=== PATIENT | female | born 1975 | race Caucasian/White ===

== ENCOUNTER 2016-11-14 10:01 | Inpatient (IN) | payer OTHER ==
[~2016-11-14] VITALS: Ht 152.4 cm; Wt 89.8 kg
[~2016-11-14 10:01] MED LIST: TRAMADOL50 MG PO
[2016-11-14 10:06] VITALS: BP 162/106
[2016-11-14] MEDS ORDERED: ASPIRIN 325 MG TAB PO ONE (10:25)
[2016-11-14] MEDS ORDERED: fentaNYL 0.05 MG/ML VIAL IVP ONE (10:25)
--- NOTE | 2016-11-14 10:50 | NUR ---
PATIENT PRESENTS TO ED DUE TO NTERMITTENT CHEST PAIN RADIATING TO LEFT ARM SINCE THURSDAY. DENIES N/V/D; SKIN IS PINK/WARM/DRY; AAOX4 WITH EVEN AND STEADY GAIT; LUNGS CLEAR BL; HR EVEN AND REGULAR; PT DENIES ANY FEVER, CP, SOB, OR COUGH AT THIS TIME; PATIENT STATES PAIN OF 5/10 AT THIS TIME; PATIENT POSITIONED FOR COMFORT; HOB ELEVATED; BEDRAILS UP X2; BED DOWN.
--- NOTE | 2016-11-14 11:12 | NUR ---
PT AAO,NO C/O PAIN AT THIS TIME ON O2 AT 2L/MIN, SKIN WARM TO TOUCH RESP. EVEN AND UNLABORED, NO VOMITTING NOTED, DAUGHTER AT BEDSIDE.
[2016-11-14] MEDS ORDERED: MOTRIN600 MG PO (11:47)
[2016-11-14] MEDS ORDERED: ROBAXIN500 M1 PO (11:47)
--- NOTE | 2016-11-14 11:47 | NUR ---
PT AWARE WILL BE ADMITTED FOR FURTHER OBSERVATION.
--- NOTE | 2016-11-14 12:07 | NUR ---
REPORT GIVEN TO JOSÉ MIGUEL
--- NOTE | 2016-11-14 12:25 | NUR ---
DR. GRAHAM AT BEDSIDE
--- NOTE | 2016-11-14 12:50 | NUR ---
PT ON UNIT. AAOX4. NO S/S OF ACUTE DISTRESS. PT DENIES PAIN. STATES SHE HAS SOME TIGHTNESS BUT ITS TOLERABLE. IV SITE PATENT AND INTACT. PT ORIENTED TO ROOM. CALL LIGHT WITHIN REACH. SAFETY MEASURES ENSURED. WILL CONTINUE TO MONITOR.
[2016-11-14 13:08] VITALS: BP 121/71
[2016-11-14] MEDS ORDERED: diphenhydrAMINE 50 MG/ML VIAL IVP PRN (13:15)
[2016-11-14] MEDS ORDERED: ACETAMINOPHEN 650 MG SUPP RC PRN (13:15)
[2016-11-14] MEDS ORDERED: BISACODYL 10 MG SUPP RC PRN (13:15)
[2016-11-14] MEDS ORDERED: MORPHINE SULFATE 2 MG/ML SYR IVP PRN (13:15)
[2016-11-14] MEDS ORDERED: SODIUM PHOSPHATE 118 ML ENEM RC PRN (13:15)
[2016-11-14] MEDS ORDERED: ALUMINUM HYD/MAG/SIMETHICONE 30 ML UDC PO PRN (13:15)
[2016-11-14] MEDS ORDERED: IPRATROPIUM 0.02% 0.5 MG/2.5 ML NEBU INH PRN (13:15)
[2016-11-14] MEDS ORDERED: MAG SULF 2000 MG/WATER PREMIX 50 ML IV PRN (13:15)
[2016-11-14] MEDS ORDERED: ONDANSETRON 4 MG/2 ML VIAL IVP PRN (13:15)
[2016-11-14] MEDS ORDERED: guaiFENesin DM 200/20 MG-10 ML 10 ML UDC PO PRN (13:15)
[2016-11-14] MEDS ORDERED: HYDROcodone/APAP 5/325 MG 1 TAB TAB PO PRN ×2 (13:15)
[2016-11-14] MEDS ORDERED: cloNIDine 0.1 MG TAB PO PRN (13:15)
[2016-11-14] MEDS ORDERED: LORazepam 2 MG/ML VIAL IVP PRN (13:15)
[2016-11-14] MEDS ORDERED: NITROGLYCERIN 0.4 MG TAB SL PRN (13:15)
[2016-11-14] MEDS ORDERED: ALBUTEROL 0.083% 2.5 MG/3 ML NEBU INH PRN (13:15)
[2016-11-14] MEDS ORDERED: DOCUSATE SODIUM 250 MG GELCAP PO PRN (13:15)
[2016-11-14] MEDS ORDERED: POTASSIUM CHLORIDE 10 MEQ TABER PO PRN (13:15)
[2016-11-14] MEDS ORDERED: POTASSIUM CHLORIDE 40 MEQ, LIDOCAINE 1% 25 MG in NACL 0.9% 250 ML IV PRN (13:15)
[2016-11-14] MEDS ORDERED: ZOLPIDEM 5 MG TAB PO PRN (13:15)
[2016-11-14] MEDS ORDERED: MAGNESIUM OXIDE 400 MG TAB PO PRN (13:15)
--- NOTE | 2016-11-14 14:01 | NUR ---
PT RESTING IN BED. NO S/S OF ACUTE DISTRESS. PT DENIES PAIN. CALL LIGHT WITHIN REACH. WILL CONTINUE TO MONITOR.
[2016-11-14 16:00] VITALS: BP 120/67
--- NOTE | 2016-11-14 16:09 | NUR ---
PT RESTING IN BED. NO S/S OF ACUTE DISTRESS. PT DENIES PAIN. IV SITE PATENT AND INTACT. CALL LIGHT WITHIN REACH. WILL CONTINUE TO MONITOR.
--- NOTE | 2016-11-14 19:10 | NUR ---
ENDORSED PLAN OF CARE TO NIGHT RN. PT REMAINS IN STABLE CONDITION.
--- NOTE | 2016-11-14 19:15 | NUR ---
PT IS CURRENTLY AWAKE ALERT ORIENTED RESTING IN BED DENIES CHEST PAIN AND SOB AT THIS TIME,PT CONTINUOUS TO HAVE OXYGEN AT 2L VIA NASAL CANNULA IN PLACE.VS TAKEN AND RECORDED.PT IS AMBULATORY AND CONTINUES TO DRINK WATER CALL LIGHT WITHIN REACH WILL CONTINUE TO MONITOR.
[2016-11-14 20:00] VITALS: BP 105/63
--- NOTE | 2016-11-14 20:00 | NUR ---
Patient's Plan of Care was discussed and reviewed with DREDGING INSPECTOR: CHANTELL MUNOZ
--- NOTE | 2016-11-14 22:30 | NUR ---
PT IS CURRENTLY RESTING IN BED WATCHING TV.CALL LIGHT WITHIN REACH WILL CONTINUE TO MONITOR.
[2016-11-15] VITALS: BP 102/65
--- NOTE | 2016-11-15 | NUR ---
PT SLEEPING IN BED WILL CONTINUE TO MONITOR CALL LIGHT WITHIN REACH.
--- NOTE | 2016-11-15 02:45 | NUR ---
PT IS SLEEPING IN BED IN NO DISTRESS.WILL CONTINUE TO MONITOR.
[2016-11-15 04:00] VITALS: BP 111/68
--- NOTE | 2016-11-15 04:00 | NUR ---
PT AWAKENED FOR VITAL SIGNS PT DENIES ANY CHEST PAIN AT THIS TIME CONTINUES TO BE MONITORED CALL LIGHT WITHIN REACH.
--- NOTE | 2016-11-15 06:52 | NUR ---
PT STABLE RESTING IN BED NO COMPLAINS OF PAIN OR DISCOMFORT NO CHEST PAIN PT IS ABLE TO MAKE NEEDS KNOWN WILL CONTINUE TO MONITOR.
--- NOTE | 2016-11-15 07:08 | NUR ---
PT STABLE AWAKE ALERT ORIENTED NO COMPLAINS OF CHEST PAIN,ENDORSED AT BEDSIDE TO RN TISHAN.
--- NOTE | 2016-11-15 07:21 | NUR ---
PATIENT HAS BEEN SCREENED AND CATEGORIZED MODERATE NUTRITION RISK. PATIENT WILL BE SEEN WITHIN 3-5 DAYS OF ADMISSION. 11/17/16-11/19/16 JOE ALFORD MS, RDN
--- NOTE | 2016-11-15 07:30 | NUR ---
RECEIVED ON BED AWAKE. AAOX4. NO SOB NOTED. NO C/O PAIN AT THIS TIME. IV TO RT HAND PATENT AND INTACT. CHEST CLEAR. ABDOMEN SOFT, BOWEL SOUNDS PRESENT. NO EDEMA NOTED. INSTRUCTED PT TO CALL FOR ASSISTANCE, CALL LIGHT WITHIN REACH. PT VERBALIZED UNDERSTANDING.
[2016-11-15 08:00] VITALS: BP 120/68
[2016-11-15] MEDS: ACETAMINOPHEN 325 MG TAB PO PRN ×2 (08:48→21:34)
[2016-11-15] MEDS ORDERED: REGADENOSON 0.4 MG/5 ML SYR IV SCH (11:55)
[2016-11-15 12:00] VITALS: BP 117/67
--- NOTE | 2016-11-15 12:15 | NUR ---
PT CONSUMED 100% OF LUNCH SERVED. AMY TOLERATED WELL.
--- NOTE | 2016-11-15 14:00 | NUR ---
DR. GRAHAM HERE TO SEE PT.
[2016-11-15 16:00] VITALS: BP 108/75
--- NOTE | 2016-11-15 16:44 | NUR ---
PT IS SCHEDULED FOR LEXISCAN ON THURSDAY PER DR. SMITH. PT MADE AWARE, VERBALIZED UNDERSTANDING.
--- NOTE | 2016-11-15 18:52 | NUR ---
PT AWAKE, WATCHING TV. NO SOB NOTED. NO C/O PAIN AT THIS TIME. WILL ENDORSE TO NEXT SHIFT NURSE FOR CONTINUITY OF CARE.
--- NOTE | 2016-11-15 19:20 | NUR ---
RECEIVED PT AWAKE, AAOX4, DENIES ANY CHEST PAIN BUT VERBALIZED OCCASIONAL INTERMITTENT CHEST PRESSURE, NONE AT THIS TIME, ENCOURAGE TO CALL IF CHEST PRESSURE /PAIN OCCURS, VERBALIZED UNDERSTANDING, VITAL SIGNS STABLE, NO SIGNS OF SOB, POC DISCUSSED, CALL LIGHT WITHIN REACH.
[2016-11-15 20:00] VITALS: BP 122/73
--- NOTE | 2016-11-15 21:40 | NUR ---
COMPLAINING OF HEADACHE, MEDICATED PRN WITH TYLENOL PO, ALL NEEDS ATTENDED.
[2016-11-16] VITALS: BP 99/63
--- NOTE | 2016-11-16 | NUR ---
ASLEEP, EASILY AROUSABLE, VITAL SIGNS STABLE, DENIES ANY PAIN, NO SOB NOTED, CONTINUE TO MONITOR CLOSELY.
[2016-11-16 04:00] VITALS: BP 105/57
--- NOTE | 2016-11-16 04:00 | NUR ---
PT SLEEPING, EASILY AROUSABLE, VITAL SIGNS STABLE, DENIES ANY PAIN, MONITORED CLOSELY.
--- NOTE | 2016-11-16 06:15 | NUR ---
PT AWAKE, COMPLAINING OF CHEST TIGHTNESS BUT DENIES CHEST PAIN, SR ON TELE WITH HR-70 BPM, NO SOB NOTED, PUT ON O2 AT 2L FOR COMFORT, OFFERED PAIN MEDICATION BUT PT SAID "NO IT'S SALLY", ENCOURAGE TO CALL IF SHE HAS CHEST PAIN, CALL LIGHT WITHIN REACH.
--- NOTE | 2016-11-16 07:21 | NUR ---
PT AWAKE, NO SIGNS OF DISTRESS, REPORT GIVEN TO MARILEE VASQUEZ FOR CONTINUITY OF CARE.
--- NOTE | 2016-11-16 07:22 | NUR ---
RECEIVED REPORT FROM DIRECTOR OF NURSING RN. PT IS AWAKE, A/O X 4, AMBULATORY. NO S/S OF ACUTE CARDIAC/RESPIRATORY DISTRESS OR DISCOMFORT. SKIN INTACT. SAFETY MEASURES IN PLACE AND CALL LIGHT WITHIN REACH. WILL CONTINUE PLAN OF CARE AND CONTINUE TO MONITOR.
--- NOTE | 2016-11-16 07:40 | NUR ---
DR SMITH IN TO SEE PT. PT TO HAVE LEXISCAN ON 11/17/16.
[2016-11-16 08:00] VITALS: BP 110/69
--- NOTE | 2016-11-16 08:00 | NUR ---
RECEIVED REPORT FROM MARILEE BARNES. PT IS AAOX4. PT ON 2L NC O2 SAT AT 99%. IV TO RIGHT HAND #24, PATENT AND INTACT. SKIN INTACT. NO N/V OR PAIN INDICATED. ALL SAFETY PRECAUTIONS IN PLACE, SIDE RAILSX2, BED IN LOW POSITION, AND CALL LIGHT WITHIN REACH. WILL CONTINUE TO MONITOR.
--- NOTE | 2016-11-16 08:10 | NUR ---
PT EATING BREAKFAST WITH NO DISTRESS. ALL NEEDS MET AT THIS TIME.
--- NOTE | 2016-11-16 10:35 | NUR ---
TALKED TO PT. PT WATCHING TV WITH NO DISTRESS NOTED. PT AWARE OF PLAN OF CARE.
[2016-11-16 12:00] VITALS: BP 114/61
--- NOTE | 2016-11-16 12:00 | NUR ---
VSS. WILL CONTINUE TO MONITOR.
--- NOTE | 2016-11-16 14:32 | NUR ---
PT WATCHING TV WITH NO DISTRESS NOTED.
--- NOTE | 2016-11-16 15:54 | NUR ---
PT RESTING WITH NO DISTRESS NOTED AT TIME. ALL NEEDS MET. WILL CONTINUE TO MONITOR.
[2016-11-16 16:00] VITALS: BP 110/68
--- NOTE | 2016-11-16 17:42 | NUR ---
PT EATING DINNER WITH NO DISTRESS NOTED.
--- NOTE | 2016-11-16 19:03 | NUR ---
ENDORSED CARE TO MARILEE BLUNT. PT IN STABLE CONDITION.
--- NOTE | 2016-11-16 19:10 | NUR ---
RECEIVED PT AWAKE EATING PUDDING AND WATCHING TV, DENIES ANY PAIN, NO SOB NOTED, VITAL SIGNS STABLE, INSTRUCTED NPO AFTER MIDNIGHT FOR LEXISCAN TOMORROW, VERBALIZED UNDERSTANDING, POC DISCUSSED, CALL LIGHT WITHIN REACH.
[2016-11-16 20:00] VITALS: BP 122/77
--- NOTE | 2016-11-16 21:00 | NUR ---
SNACK PROVIDED PER REQUEST, TOLERATED WELL, ALL NEEDS ATTENDED.
[2016-11-17] VITALS (7 sets, daily range): BP systolic 94–123; BP diastolic 58–77
--- NOTE | 2016-11-17 | NUR ---
PT SLEEPING, EASILY AROUSABLE, VITAL SIGNS STABLE, DENIES ANY PAIN, NO SOB NOTED, INSTRUCTED NPO STATUS, VERBALIZED UNDERSTANDING, CONTINUE TO MONITOR CLOSELY.
--- NOTE | 2016-11-17 04:00 | NUR ---
ASLEEP, EASILY AROUSABLE, VITAL SIGNS STABLE, DENIES ANY PAIN, MONITORED CLOSELY.
--- NOTE | 2016-11-17 06:00 | NUR ---
SEEN SLEEPING, NO SIGNS OF DISTRESS, MAINTAINED ON NPO.
--- NOTE | 2016-11-17 07:15 | NUR ---
RECEIVED PT FROM MARILEE BLUNT ASLEEP BUT EASILY AWAKEN, AAOX4, WITH NO S/S OF RESPIRATORY DISTRESS OR DISCOMFORT. SLIN IS INTACT. WITH IV ON RIGHT HAND 624 ON SALINE LICK, PATENT AND INTACT. DISCUSSED PLAN OF CARE, PT VERBALIZED UNDERSTANDING. CALL LIGHT WITHIN REACH, WILL CONTINUE TO MONITOR.
[2016-11-17] MEDS ORDERED: REGADENOSON 0.4 MG/5 ML SYR IV SCH (07:35)
--- NOTE | 2016-11-17 09:30 | NUR ---
PT INFORMED ABOUT HER LEXISCAN, SHE WILL BE PICKED UP BY 1100. PT AWAKE AAOX4 NO COMPLAINTS AT THIS TIME. CALL LIGHT WITHIN REACH,W ILL CONTINUE TO MONITOR.
--- NOTE | 2016-11-17 11:24 | NUR ---
PT LEFT UNIT FOR LEXISCAN WITH DOMINIC IN A WHEELCHAIR IN STABLE CONDITION
--- NOTE | 2016-11-17 11:57 | NUR ---
PER DOMINIC OF NUCLEAR MED, PT CAN EAT AFTER STRESS TEST.
--- NOTE | 2016-11-17 11:59 | NUR ---
CM NOTE PER COMMUNITY ENGAGEMENT SPECIALIST JUD EXT [id number], REVIEWS SHOULD BE SENT TO [facility] ONLY. INITIAL REVIEW SENT TO [facility] FAX# [phone] PH# [phone]
--- NOTE | 2016-11-17 12:50 | NUR ---
PT BACK IN UNIT. LUNCH SERVED, PT HAS GOOD APPETITE. CALL LIGHT WITHIN REACH, WILL CONTINUE TO MONITOR.
--- NOTE | 2016-11-17 12:59 | NUR ---
DR SMITH IN THE NURSES STATION
--- NOTE | 2016-11-17 13:12 | NUR ---
LEXISCAN STRESS TEST DONE
--- NOTE | 2016-11-17 14:57 | NUR ---
PT IN THE ROOM AWAKE WHILE WATCHING TV. ALL NEEDS MET AT THIS TIME. CALL LIGHT WITHIN REACH, WILL CONTINUE TO MONITOR.
--- NOTE | 2016-11-17 15:30 | NUR ---
RECEIVED REPORT AT BEDSIDE FROM MARILEE BALL. PT RESTING IN BED. AAOX4. DENIES CHEST PAIN. NO S/S OF ACUTE DISTRESS. IV SITE PATENT AND INTACT. CALL LIGHT WITHIN REACH.
[2016-11-17] MEDS: ACETAMINOPHEN 325 MG TAB PO PRN (18:10)
--- NOTE | 2016-11-17 18:20 | NUR ---
SPOKE WITH DR. SMITH. AWAITING RADIOLOGIST FOR LEXISCAN RESULTS. PT RESTING IN BED. C/O HEADACHE, MEDICATED ORDERED.
--- NOTE | 2016-11-17 19:13 | NUR ---
SBAR REPORT GIVEN TO MARILEE CHAVEZ AT PT BEDSIDE. NO S/S OF ACUTE DISTRESS.
--- NOTE | 2016-11-17 19:14 | NUR ---
RECEIVED PT IN STABLE CONDITION FROM MARILEE LAZAR. NO SOB, NO SIGNS OF DISTRESS. PT IS AOX4, AMBULATORY. SKIN IS INTACT. IV TO RT HAND 24G PATENT, ASYMPTOMATIC, INTACT, SALINE LOCKED. PT DENIES PAIN AT THIS TIME. VS STABLE ON ROOM AIR. PT STATES SHE WISHES TO SIGN AMA SINCE HER LEXISCAN RESULTS HAVE NOT COME IN YET, TOLD PT I WILL FOLLOW UP WITH RADIOLOGY FOR REPORT AND GET BACK TO HER. PT VERBALIZED UNDERSTANDING. PLAN OF CARE DISCUSSED WITH PT. SAFETY MEASURES IN PLACE. CALL LIGHT WITHIN REACH. WILL CONTINUE TO MONITOR.
--- NOTE | 2016-11-17 19:31 | NUR ---
SPOKE WITH RADIOLOGY, LEXISCAN RESULT HAS BEEN AVAILABLE SINCE 1622. THEY WILL FAX RESULT SO I CAN F/U WITH ABOUT DC.
--- NOTE | 2016-11-17 19:45 | NUR ---
RECEIVED [facility] TEST RESULTS VIA FAX, TOLD PT I AM PAGING MDS TO GET A DC ORDER, PT VERBALIZED UNDERSTANDING.
--- NOTE | 2016-11-17 19:47 | NUR ---
PAGED LUIS TO MAKE AWARE OF LEXISCAN, WAITING FOR CALL BACK.
--- NOTE | 2016-11-17 20:30 | NUR ---
PAGED MD VIRAMONTES RETAIL SERVICE REPRESENTATIVE FOR MD GRAHAM
--- NOTE | 2016-11-17 20:37 | NUR ---
SPOKE WITH MD VIRAMONTES, MADE AWARE THAT MD SMITH IS NOT ANSWERING PAGES. MD VIRAMONTES STATED SHE WILL TALK TO MD GRAHAM TO SEE IF PT CAN BE DC SINCE LEXISCAN WAS CLEAR.
--- NOTE | 2016-11-17 20:42 | NUR ---
SPOKE WITH MD ANA M MD STATED PER MD GRAHAM PT CAN BE DC HOME WITH INSTRUCTIONS TO F/U WITH PCP IN 1 WEEK AND CONTINUE HOME MEDS. WILL CARRY OUT ORDERS.
--- NOTE | 2016-11-17 21:25 | NUR ---
DISCHARGED PT HOME IN STABLE CONDITION. IV TO LT HAND REMOVED, CANNULA INTACT, NO BLEEDING NOTED. ID NBAND REMOVED. DISCHARGE TEACHING AND INSTRUCTIONS GIVEN. PT ADVISED TO F/U WITH PCP IN ONE WEEK AND CONTINUE HOME MEDS. ALL QUESTIONS ANSWERED PRIOR TO DISCHARGE.
== END 2016-11-17 21:25 | disposition home or self-care (01) | DRG 203 ==
LOC: MED 10:01 → MTU 11:54
PROVIDERS: ADMIT Internal Medicine Pulmonary Disease; ATTEND Internal Medicine Pulmonary Disease
DX: R07.89 Other chest pain (principal); I10 Essential (primary) hypertension; E66.9 Obesity, unspecified; M51.36 Other intervertebral disc degeneration, lumbar region; F17.210 Nicotine dependence, cigarettes, uncomplicated; Z82.49 Family history of ischemic heart disease and other diseases of the circulatory system; Z68.38 Body mass index [BMI] 38.0-38.9, adult; Z98.51 Tubal ligation status